=== PATIENT | female | born 1985 | race Caucasian/White ===

== ENCOUNTER 2016-07-09 22:48 | Emergency (ER) | payer OTHER, MEDICAID ==
[~2016-07-09] VITALS: Ht 157.5 cm; Wt 55.8 kg
[~2016-07-09 22:48] MED LIST: ADVAIR 10028 PUFF/IN IN; ADVAIR DISKUS 21 DSK IH; ALBUTEROL-200 PUFFS/ IH; ALBUTEROL2 PUFFS/17 IN; ALBUTEROL2.5 MG/NEB IN; APAP/BUTALBITAL1 TA1 PO; ATIVAN1 MG PO; BUPROPION HCL100 M3 PO; CEFTIN500 MG PO; CIPRO 500MG TA500 MG PO; COMBIVENT1 ARO IH; DELTASONE5 MG PO; DOXYCYCLINE100 M5 PO; EFFEXOR XR 75MG75 MG PO; EFFEXOR75 MG PO; FLEXERIL10 MG PO; HYDROXYZINE PAM50 MG PO; HYDROXYZINE50 MG PO; K-DUR 20MEQ TA20 MEQ PO; KEFLEX 500MG.500 MG PO; LORATADINE 10MG10 M1 PO; LORTAB 5/500 501 TAB PO; OMNICEF 300 MG300 MG PO; PHENERGAN 25MG.25 M1 PO; PHENERGAN12.5 M3 PO; PREDNISONE 20MG20 MG PO; PREDNISONE50 MG PO; RELPAX40 MG PO; RISPERDAL 0.20.25 MG PO; RISPERIDONE0.25 MG PO; ROBITUSSIN DM S10 ML PO; SEPTRA DS 800 M1 TAB PO; SINGULAIR 10 MG10 MG PO; SINGULAIR10 MG PO; SUBOXONE1 FI1 SL; SYMBICORT1 AER IH; TESSALON PERLE100 M1 PO; TRAMADOL 50MG T50 MG PO; TRAZODONE 50MG50 MG PO; TRAZODONE HCL50 MG PO; ULTRAM50 MG PO; VICODIN 5/500 T1 TAB PO; XANAX 0.5MG TA0.5 MG PO; ZITHROMAX Z PA250 MG PO; ZITHROMAX Z-PA250 M1 PO; ZOFRAN ODT4 MG PO; ZOFRAN4 MG PO; ZYRTEC 10MG TAB10 MG PO; ZYRTEC10 M2 PO; Zofran4 MG PO
--- NOTE | 2016-07-09 23:34 | Emergency Room Report ---
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 N Clinical Suspician of Infection? N Mental Status: 1 - Regular (Normal Baseline) Sepsis Risk: Have you (or family members/close friends) recently traveled outside the [place]? N If Yes, where/when: Have you had exposure to infectious disease within the past month? N TB? Other? Specify: Source patient, RN notes reviewed, family, old records Exam Limitations no limitations Comment pt with acute excerbation of known migraine rendon with no rash/fever or trauma Cardiac Chest Pain Chest pain indicative of cardiac No Timing/Duration this evening Severity moderate ALLERGIES Coded Allergies: acetaminophen (From DARVOCET-N 100) (07/09/16) propoxyphene (From DARVOCET-N 100) (07/09/16) Home Medications Active Scripts Albuterol (Albuterol-Hfa Inhaler) 2 PUFFS IH Q2HP PRN WHEEZING #1 INH Prov: 03/14/15 APAP 325MG/CAFF 40MG/BUTA 50MG (Efmbph-Wnweyyzt-Ocad 50-325-40) 1 TAB PO Q6HP PRN HEADACHE #10 TAB Prov: 03/14/15 Reported Medications Albuterol (Albuterol-Hfa Inhaler) 2 PUFFS IH Q4HPRN #1 INH CETIRIZINE HCL (Zyrtec) 10 MG PO DAILY ALBUTEROL (Albuterol 0.083% Neb) 3 ML IN PRN PRN ASTHMA ELETRIPTAN HBR (Relpax) 40 MG PO DAILYP PRN MIGRANE History Medical History General CAD? No Angina: No [place]: No Hypertension? No Hyperlipidemia? No CHF? No DVT? No PE? No COPD? No Asthma? Yes Anemia? Yes GERD? No Gastric ulcers? No GI Bleed? No Hernia? No Thyroid Problems? No Hypothyroidism? No CVA? No Seizures? Yes Diabetes? No Insulin Dependent: No Insulin Pump: No Home FSBS? No Renal Insuffiency? No End Stage Renal Disease? No UTI? Yes Stones? No BPH? No GB Disease: Yes Nephritic Syndrome? No Asplenia? No Hepatitis? No Sickle Cell Disease? No Arthritis? No Migraines? No Cataracts? No Glaucoma? No MRSA? Yes HIV? No TB? No Anxiety? Yes Depression? Yes Cancer? No More? 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 Respiratory denies cough, denies shortness of breath, denies wheezing Cardiovascular denies chest pain, denies palpitations, denies syncope Gastrointestinal see HPI, denies abdominal pain, nausea Genitourinary denies: dysuria, frequency, hesitancy, hematuria. Musculoskeletal denies joint pain, denies joint swelling, denies neck pain Skin denies rash Psychiatric/Neurological see HPI, headache, denies seizure Physical Exam Vital Signs Vital Signs Date Time Temp Pulse Resp B/P Pulse O2 O2 Flow FiO2 Ox Delivery Rate 07/09 2355 75 18 96/57 95 07/09 2303 18 07/09 2250 98.9 108 18 126/90 95 - WBC >12,000 or <4,000 or 10% bands? 2 or more SIRS Criteria Met? B/P: MAP:102 Creatinine >2.0? UA output<0.5ml/kg/hr for 2 hrs? Platelet count >100,000? Lactate >2.0mmol/1? INR >1.2 or PTT > than 60 sec? Evidence of Organ Dysfunction? Provider documented clinical suspician of infection? N Sepsis Criteria Count: 1 Sepsis Risk: General Appearance no apparent distress Eye Exam - bilateral eye PERRL, bilateral eye EOMI Ear, Nose, Throat normal ENT inspection Neck supple Respiratory Status No: respiratory distress. 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 No Results/Orders Current Medication Orders Sig/Olya Start time Last Medication Dose Route Stop Time Status Admin Diphenhydramine HCl 0 .STK-MED ONE 07/09 2353 DC .ROUTE Diphenhydramine HCl 25 MG ONCE ONE 07/09 2345 DC 07/09 IV 07/09 2346 2354 Sodium Chloride 1,000 ML .Q1H1M 07/09 2315 AC 07/09 IV 07/10 0015 2302 Sodium Chloride 10 ML PRN PRN 07/09 2315 AC IV 07/10 2301 Ketorolac 30 MG ONCE ONE 07/09 2300 DC 07/09 Tromethamine IV 07/09 230 2303 Ketorolac 0 .STK-MED ONE 07/09 2300 DC Tromethamine .ROUTE Ondansetron HCl 4 MG ONCE ONE 07/09 2300 DC 07/09 IV 07/09 2301 2302 Ondansetron HCl 0 .STK-MED ONE 07/09 2300 DC .ROUTE Sodium Chloride 1,000 ML .STK-MED ONE 07/09 2259 DC IV Departure Departure Time of Disposition 0002 Disposition DC Home or Self Care(routine) Clinical Impression Primary Impression: Headache Qualifiers: Headache type: unspecified Headache chronicity pattern: acute headache Intractability: not intractable Qualified Code: R51 - Headache Condition STABLE Referrals JANNY LOUIE DIXIE (Family) Patient Instructions DI for Headache Additional Instructions call pcp in am Discharge Counseling Counseled pt/family regarding diagnosis, test results, follow up needs ED Critical Care Critical Care No at 0004
--- NOTE | 2016-07-09 23:34 | Emergency Room Report ---
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 N Clinical Suspician of Infection? N Mental Status: 1 - Regular (Normal Baseline) Sepsis Risk: Have you (or family members/close friends) recently traveled outside the [place]? N If Yes, where/when: Have you had exposure to infectious disease within the past month? N TB? Other? Specify: Source patient, RN notes reviewed, family, old records Exam Limitations no limitations Comment pt with acute excerbation of known migraine rendon with no rash/fever or trauma Cardiac Chest Pain Chest pain indicative of cardiac No Timing/Duration this evening Severity moderate ALLERGIES Coded Allergies: acetaminophen (From DARVOCET-N 100) (07/09/16) propoxyphene (From DARVOCET-N 100) (07/09/16) Home Medications Active Scripts Albuterol (Albuterol-Hfa Inhaler) 2 PUFFS IH Q2HP PRN WHEEZING #1 INH Prov: 03/14/15 APAP 325MG/CAFF 40MG/BUTA 50MG (Tpgamg-Ilwkbbqb-Dijq 50-325-40) 1 TAB PO Q6HP PRN HEADACHE #10 TAB Prov: 03/14/15 Reported Medications Albuterol (Albuterol-Hfa Inhaler) 2 PUFFS IH Q4HPRN #1 INH CETIRIZINE HCL (Zyrtec) 10 MG PO DAILY ALBUTEROL (Albuterol 0.083% Neb) 3 ML IN PRN PRN ASTHMA ELETRIPTAN HBR (Relpax) 40 MG PO DAILYP PRN MIGRANE History Medical History General CAD? No Angina: No [place]: No Hypertension? No Hyperlipidemia? No CHF? No DVT? No PE? No COPD? No Asthma? Yes Anemia? Yes GERD? No Gastric ulcers? No GI Bleed? No Hernia? No Thyroid Problems? No Hypothyroidism? No CVA? No Seizures? Yes Diabetes? No Insulin Dependent: No Insulin Pump: No Home FSBS? No Renal Insuffiency? No End Stage Renal Disease? No UTI? Yes Stones? No BPH? No GB Disease: Yes Nephritic Syndrome? No Asplenia? No Hepatitis? No Sickle Cell Disease? No Arthritis? No Migraines? No Cataracts? No Glaucoma? No MRSA? Yes HIV? No TB? No Anxiety? Yes Depression? Yes Cancer? No More? 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 Respiratory denies cough, denies shortness of breath, denies wheezing Cardiovascular denies chest pain, denies palpitations, denies syncope Gastrointestinal see HPI, denies abdominal pain, nausea Genitourinary denies: dysuria, frequency, hesitancy, hematuria. Musculoskeletal denies joint pain, denies joint swelling, denies neck pain Skin denies rash Psychiatric/Neurological see HPI, headache, denies seizure Physical Exam Vital Signs Vital Signs Date Time Temp Pulse Resp B/P Pulse O2 O2 Flow FiO2 Ox Delivery Rate 07/09 2355 75 18 96/57 95 07/09 2303 18 07/09 2250 98.9 108 18 126/90 95 - WBC >12,000 or <4,000 or 10% bands? 2 or more SIRS Criteria Met? B/P: MAP:102 Creatinine >2.0? UA output<0.5ml/kg/hr for 2 hrs? Platelet count >100,000? Lactate >2.0mmol/1? INR >1.2 or PTT > than 60 sec? Evidence of Organ Dysfunction? Provider documented clinical suspician of infection? N Sepsis Criteria Count: 1 Sepsis Risk: General Appearance no apparent distress Eye Exam - bilateral eye PERRL, bilateral eye EOMI Ear, Nose, Throat normal ENT inspection Neck supple Respiratory Status No: respiratory distress. 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 No Results/Orders Current Medication Orders Sig/Olya Start time Last Medication Dose Route Stop Time Status Admin Diphenhydramine HCl 0 .STK-MED ONE 07/09 2353 DC .ROUTE Diphenhydramine HCl 25 MG ONCE ONE 07/09 2345 DC 07/09 IV 07/09 2346 2354 Sodium Chloride 1,000 ML .Q1H1M 07/09 2315 AC 07/09 IV 07/10 0015 2302 Sodium Chloride 10 ML PRN PRN 07/09 2315 AC IV 07/10 2301 Ketorolac 30 MG ONCE ONE 07/09 2300 DC 07/09 Tromethamine IV 07/09 230 2303 Ketorolac 0 .STK-MED ONE 07/09 2300 DC Tromethamine .ROUTE Ondansetron HCl 4 MG ONCE ONE 07/09 2300 DC 07/09 IV 07/09 2301 2302 Ondansetron HCl 0 .STK-MED ONE 07/09 2300 DC .ROUTE Sodium Chloride 1,000 ML .STK-MED ONE 07/09 2259 DC IV Departure Departure Time of Disposition 0002 Disposition DC Home or Self Care(routine) Clinical Impression Primary Impression: Headache Qualifiers: Headache type: unspecified Headache chronicity pattern: acute headache Intractability: not intractable Qualified Code: R51 - Headache Condition STABLE Referrals JANNY LOUIE DIXIE (Family) Patient Instructions DI for Headache Additional Instructions call pcp in am Discharge Counseling Counseled pt/family regarding diagnosis, test results, follow up needs ED Critical Care Critical Care No at 0004
[2016-07-10 00:08] VITALS: BP 96/57
[2016-08-18] MEDS ORDERED: BACTRIM DS 8001 TA1 PO (17:30)
== END 2016-07-10 00:13 | disposition home or self-care (01) ==
LOC: ER 22:48
DX: R51 Headache (principal); F41.8 Other specified anxiety disorders; Z72.0 Tobacco use
CPT/HCPCS: J2405

== ENCOUNTER 2016-07-24 17:39 | Emergency (ER) | payer OTHER, MEDICAID ==
[~2016-07-24] VITALS: Ht 157.5 cm; Wt 54.4 kg
--- NOTE | 2016-07-24 18:20 | Emergency Room Report ---
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 N Clinical Suspician of Infection? N Mental Status: 1 - Regular (Normal Baseline) Sepsis Risk:Low Sepsis Risk Have you (or family members/close friends) recently traveled outside the [place]? N If Yes, where/when: Have you had exposure to infectious disease within the past month? N TB? Other? Specify: Comment The patient states that she was moving a cinder block at 2 PM when she smashed her RIGHT small finger and ring finger distal phalanges. She has a blood blister on the finger pad of her ring finger and a laceration on the finger pad of her small finger. Last tetanus update was less than 5 years ago. ALLERGIES Coded Allergies: acetaminophen (From DARVOCET-N 100) (07/09/16) propoxyphene (From DARVOCET-N 100) (07/09/16) Home Medications Reported Medications No Known Home Medications History Medical History General CAD? No Angina: No [place]: No Hypertension? No Hyperlipidemia? No CHF? No DVT? No PE? No COPD? No Asthma? Yes Anemia? Yes GERD? No Gastric ulcers? No GI Bleed? No Hernia? No Thyroid Problems? No Hypothyroidism? No CVA? No Seizures? Yes Diabetes? No Insulin Dependent: No Insulin Pump: No Home FSBS? No Renal Insuffiency? No End Stage Renal Disease? No UTI? Yes Stones? No BPH? No GB Disease: Yes Nephritic Syndrome? No Asplenia? No Hepatitis? No Sickle Cell Disease? No Arthritis? No Migraines? No Cataracts? No Glaucoma? No MRSA? Yes HIV? No TB? No Anxiety? Yes Depression? Yes Cancer? No More? 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 Cardiovascular normal peripheral pulses Extremities 2 cm laceration finger pad RIGHT small finger, hemorrhagic vesicle, superficial, finger pad RIGHT ring finger, neurovascular intact Neurologic alert, no motor/sensory deficits Medical Decision Making LABS/Meds/Orders Pt receiving controlled substance in ED? No Results/Orders Current Medication Orders Sig/Olya Start time Last Medication Dose Route Stop Time Status Admin Multi-Ingredient 1 UDP ONCE ONE 07/24 1914 AC Ointment TP 07/24 1915 Bupivacaine HCl 10 ML ONCE ONE 07/24 183 DC SC 07/24 1830 Bupivacaine HCl 0 .STK-MED ONE 07/24 182 DC .ROUTE Orders Procedure Date/time Status HAND-RT 3 VIEWS 07/24 1821 Active XRAY/CT/US XRAY/CT/US XRAY hand Comment Interpreted by Alhaji Guerrero MD. Negative for fracture, dislocation, or foreign body. Procedures Laceration/Wound Repair Progress RIGHT small finger was anesthetized with 0.5 percent bupivacaine by digital block. When the wound was being scrubbed it was seen to be superficial, a ruptured partial thickness vesicle rather than a full thickness laceration. The ruptured blister was debrided away with iris scissors and the wound was cleansed and a bandage applied. The hemorrhagic vesicle on the ring finger was ruptured with iris scissors and allowed to drain. Departure Departure Disposition DC Home or Self Care(routine) Clinical Impression Primary Impression: Blister of finger Qualifiers: Encounter type: initial encounter Qualified Code: S60.429A - Blister (nonthermal) of unspecified finger, initial encounter Secondary Impressions: Contusion, finger Qualifiers: Encounter type: initial encounter Finger: unspecified finger Damage to nail status: with damage Qualified Code: S60.10XA - Contusion of unspecified finger with damage to nail, initial encounter Condition STABLE Referrals JANNY LOUIE, ROLO (Family) Additional Instructions Additional instructions for WOUND CARE: Clean the wound daily and a bandage. Return to the emergency room if increasing pain, swelling, redness, red streaks, pus drainage, or fever. Prescriptions Current Visit Scripts No Known Home Medications ED Critical Care Critical Care No at 1912
--- NOTE | 2016-07-24 18:20 | Emergency Room Report ---
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 N Clinical Suspician of Infection? N Mental Status: 1 - Regular (Normal Baseline) Sepsis Risk:Low Sepsis Risk Have you (or family members/close friends) recently traveled outside the [place]? N If Yes, where/when: Have you had exposure to infectious disease within the past month? N TB? Other? Specify: Comment The patient states that she was moving a cinder block at 2 PM when she smashed her RIGHT small finger and ring finger distal phalanges. She has a blood blister on the finger pad of her ring finger and a laceration on the finger pad of her small finger. Last tetanus update was less than 5 years ago. ALLERGIES Coded Allergies: acetaminophen (From DARVOCET-N 100) (07/09/16) propoxyphene (From DARVOCET-N 100) (07/09/16) Home Medications Reported Medications No Known Home Medications History Medical History General CAD? No Angina: No [place]: No Hypertension? No Hyperlipidemia? No CHF? No DVT? No PE? No COPD? No Asthma? Yes Anemia? Yes GERD? No Gastric ulcers? No GI Bleed? No Hernia? No Thyroid Problems? No Hypothyroidism? No CVA? No Seizures? Yes Diabetes? No Insulin Dependent: No Insulin Pump: No Home FSBS? No Renal Insuffiency? No End Stage Renal Disease? No UTI? Yes Stones? No BPH? No GB Disease: Yes Nephritic Syndrome? No Asplenia? No Hepatitis? No Sickle Cell Disease? No Arthritis? No Migraines? No Cataracts? No Glaucoma? No MRSA? Yes HIV? No TB? No Anxiety? Yes Depression? Yes Cancer? No More? 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 Cardiovascular normal peripheral pulses Extremities 2 cm laceration finger pad RIGHT small finger, hemorrhagic vesicle, superficial, finger pad RIGHT ring finger, neurovascular intact Neurologic alert, no motor/sensory deficits Medical Decision Making LABS/Meds/Orders Pt receiving controlled substance in ED? No Results/Orders Current Medication Orders Sig/Olya Start time Last Medication Dose Route Stop Time Status Admin Multi-Ingredient 1 UDP ONCE ONE 07/24 1914 AC Ointment TP 07/24 1915 Bupivacaine HCl 10 ML ONCE ONE 07/24 183 DC SC 07/24 1830 Bupivacaine HCl 0 .STK-MED ONE 07/24 182 DC .ROUTE Orders Procedure Date/time Status HAND-RT 3 VIEWS 07/24 1821 Active XRAY/CT/US XRAY/CT/US XRAY hand Comment Interpreted by Alhaji Guerrero MD. Negative for fracture, dislocation, or foreign body. Procedures Laceration/Wound Repair Progress RIGHT small finger was anesthetized with 0.5 percent bupivacaine by digital block. When the wound was being scrubbed it was seen to be superficial, a ruptured partial thickness vesicle rather than a full thickness laceration. The ruptured blister was debrided away with iris scissors and the wound was cleansed and a bandage applied. The hemorrhagic vesicle on the ring finger was ruptured with iris scissors and allowed to drain. Departure Departure Disposition DC Home or Self Care(routine) Clinical Impression Primary Impression: Blister of finger Qualifiers: Encounter type: initial encounter Qualified Code: S60.429A - Blister (nonthermal) of unspecified finger, initial encounter Secondary Impressions: Contusion, finger Qualifiers: Encounter type: initial encounter Finger: unspecified finger Damage to nail status: with damage Qualified Code: S60.10XA - Contusion of unspecified finger with damage to nail, initial encounter Condition STABLE Referrals JANNY LOUIE, ROLO (Family) Additional Instructions Additional instructions for WOUND CARE: Clean the wound daily and a bandage. Return to the emergency room if increasing pain, swelling, redness, red streaks, pus drainage, or fever. Prescriptions Current Visit Scripts No Known Home Medications ED Critical Care Critical Care No at 1912
[2016-07-24 19:19] VITALS: BP 118/77
--- NOTE | 2016-07-24 19:35 | RADIOLOGY REPORT PS360 ---
HAND-RT 3 VIEWS INDICATION: Smashed hand and fingers with cinderblock. Image injury right fourth and fifth fingers. TECHNIQUE: 3 views right hand COMPARISON: May 2007 right wrist FINDINGS: The fourth and fifth fingers appear intact. The hand appears intact. No acute fracture nor dislocation evident Visualized joint space well maintained. Normal mineralization. No obvious radio opaque foreign bodies. Unremarkable soft tissues. IMPRESSION: Negative right hand. The fourth and fifth fingers appear intact.
[2016-08-18] MEDS ORDERED: BACTRIM DS 8001 TA1 PO (17:30)
== END 2016-07-24 19:21 | disposition home or self-care (01) ==
LOC: ER 17:39
PROC: 3E0T33Z Introduction of Anti-inflammatory into Peripheral Nerves and Plexi, Percutaneous Approach (ICD-10-PCS; principal; 2016-07-24)
PROC: 3E0T3BZ Introduction of Anesthetic Agent into Peripheral Nerves and Plexi, Percutaneous Approach (ICD-10-PCS; principal; 2016-07-24)
PROC: 0JBJ0ZZ Excision of Right Hand Subcutaneous Tissue and Fascia, Open Approach (ICD-10-PCS; principal; 2016-07-24)
DX: S61.216A Laceration without foreign body of right little finger without damage to nail, initial encounter (principal); W23.0XXA Caught, crushed, jammed, or pinched between moving objects, initial encounter; Y92.69 Other specified industrial and construction area as the place of occurrence of the external cause; S60.429A Blister (nonthermal) of unspecified finger, initial encounter

== ENCOUNTER 2016-08-20 14:23 | Inpatient (IN) | payer OTHER, MEDICAID ==
[~2016-08-20] VITALS: Ht 157.5 cm; Wt 50.5 kg
[~2016-08-20 14:23] MED LIST changes: +BACTRIM DS 8001 TA1 PO
[2016-08-20 15:23] VITALS: BP 119/59
[2016-08-20 15:57] VITALS: BP 119/59
[2016-08-20 16:11] VITALS: BP 128/81
[2016-08-20] MEDS ORDERED: ZYRTEC10 M2 PO (16:12)
[2016-08-20 16:44] LABS: HEMOGLOBIN 12.2 g/dL (12.2-16.2); LYMPH # 1.1 K/mm3 (0.7-4.5); LYMPH % 12.1 % (10-50.0)
[2016-08-20 19:23] VITALS: BP 110/67
[2016-08-20 20:45] VITALS: BP 110/67
[2016-08-21 03:42] VITALS: BP 105/68
--- NOTE | 2016-08-21 04:45 | RADIOLOGY REPORT PS360 ---
CHEST(2 VIEWS-NOT PORTABLE) HISTORY: cough ORDERING PHYSICIAN: Leonard Latham MD PATIENT AGE: 31 years COMPARISON: 08/18/2016 FINDINGS: The cardiomediastinal silhouette and pulmonary vascularity are within normal limits. Calcified granuloma is present in the left lower lobe. There remains coarsening of the bronchovascular markings as previously described somewhat improved on today's exam.. No acute bony abnormalities. IMPRESSION: Improving bronchopneumonia
[2016-08-21 06:50] LABS: LYMPH # 1.4 K/mm3 (0.7-4.5); LYMPH % 29.5 % (10-50.0)
--- NOTE | 2016-08-21 07:14 | PHARMACY CLINIC NOTE ---
Patient Demographics Patient Demographics Admission date: 08/20/16 Date: 08/21/16 Time: 712 Allergies Coded Allergies: propoxyphene (From DARVOCET-N 100) (07/09/16) HEIGHT- FT: 5 IN: 2.00 K.491 VTE General Information Labs: Laboratory Tests 08/21 08/20 0605 1622 Hematology Hgb (12.2 - 16.2 g/dL) 11.0 L 12.2 Hct (37.0 - 47.0 %) 31.4 L 36.6 L Plt Count (142 - 424 K/mm3) 150 187 Disclaimer The following section includes nursing documentation that has been pulled in for pharmacy review. Patient's VTE score: 0 Patient's VTE Risk: VERY LOW RISK Clinical trial participant? No VTE prophylaxis NQF [id number] VTE prophylaxis ordered? Yes Type of prophylaxis/treatment: DARIEN at 0714
[2016-08-21 08:03] VITALS: BP 107/66
--- NOTE | 2016-08-21 08:36 | ACUTE CARE PROGRESS NOTE (QUA) ---
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 IV drug abuse 2. Abscess of arm, left Patient condition Stable Plan: continue current care This inpt stay is expected to cross 2 MNs from start of care Yes Comments: awaiting culture results at 7436
--- NOTE | 2016-08-21 08:36 | ACUTE CARE PROGRESS NOTE (QUA) ---
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 Patient/family reports: feeling better Nursing reports: no complaints Objective Findings Last VS-Temp:98.4 B/P:107/66 Pulse:93 Resp:20 SaO2:97 ROOM AIR Last weight lbs:111 oz:5 K.491 Method:Bed Scales Exam General appearance: alert Eyes: anicteric, PERRLA ENT: dry mucous membranes Neck: no JVD Cardiovascular: regular rate & rhythm Respiratory: no respiratory distress, rhonchi ABD: soft Genitourinary: no hematuria Extremities: moves all Musculoskeletal: equal muscle strength Skin: cellulitis lt upper ext Neuro: alert, hammer fitter II-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 IV drug abuse 2. Abscess of arm, left Patient condition Stable Plan: continue current care This inpt stay is expected to cross 2 MNs from start of care Yes Comments: awaiting culture results at [id number]
[2016-08-21 08:50] VITALS: BP 107/66
--- NOTE | 2016-08-21 09:33 | CONSULT NOTE ---
Pharmacokinetic Consult Date of consult: 08/21/16 Time of consult: 927 Referring provider: DR. DICKSON Reason for consult: VANCOMYCIN DOSING Allergies: Coded Allergies: propoxyphene (From DARVOCET-N 100) (07/09/16) Home Medications: Active Scripts SULFAMETHOXAZOLE W/TRIMETHOPRI (Bactrim Ds Tab) 1 TABLET PO BID #20 TAB Prov: 08/18/16 Reported Medications CETIRIZINE HCL (Zyrtec) 10 MG PO Height (feet): 5 Height (inches): 2.00 Medical History: CAD? No Angina: No [place]: No Hypertension? No Hyperlipidemia? No CHF? No DVT? No PE? No COPD? No Asthma? Yes Anemia? Yes GERD? No Gastric ulcers? No GI Bleed? No Hernia? No Thyroid Problems? No Hypothyroidism? No CVA? No Seizures? Yes Diabetes? No Insulin Dependent: No Insulin Pump: No Home FSBS? No Renal Insuffiency? No UTI? Yes Stones? No BPH? No GB Disease: Yes Nephritic Syndrome? No Asplenia? No Hepatitis? No Sickle Cell Disease? No Arthritis? No Migraines? No Cataracts? No Glaucoma? No MRSA? Yes HIV? No TB? No Anxiety? Yes Depression? Yes Cancer? No More? No Labs: Laboratory Tests 08/21/16 0605: Creatine Kinase 31, CK-MB (CK-2) Rel Index 2.6, CK and CKMB Interp 0.8, Troponin I < 0.02 08/21/16 0605: Sodium 142, Potassium 3.6, Chloride 108 H, Carbon Dioxide 26, BUN 9, Creatinine 0.6, Estimated Creat Clear 108, Estimated GFR (MDRD) 117, Glucose 99, Calcium 7.9 L, WBC 4.8, RBC 3.37 L, Hgb 11.0 L, Hct 31.4 L, MCV 93.4, RDW 13.9, Plt Count 150, MPV 6.4 L, Gran % 49.2, Gran # 2.4, Lymphocytes % 29.5, Monocytes % 4.9, Eosinophils % 16.2 H, Basophils % 0.3, Lymphocytes # 1.4, Monocytes # 0.2, Eosinophils # 0.8 H, Basophils # 0.0, PUBS MCHC 34.9, MCH 32.6 H 08/20/16 1622: Lactic Acid 0.6 08/20/16 1622: Sodium 138, Potassium 3.7, Chloride 103, Carbon Dioxide 26, BUN 11, Creatinine 0.7, Estimated Creat Clear 93, Estimated GFR (MDRD) 98, Glucose 92, Calcium 8.7, Total Bilirubin 0.5, AST 24, ALT 35, Alkaline Phosphatase 70, Total Protein 8.3 H, Albumin 3.3 L, Globulin 5.0 H, Albumin/Globulin Ratio 0.7 L, WBC 8.8, RBC 3.97 L, Hgb 12.2, Hct 36.6 L, MCV 92.0, RDW 13.9, Plt Count 187, MPV 6.3 L, Gran % 73.3, Gran # 6.5, Lymphocytes % 12.1, Monocytes % 4.3, Eosinophils % 10.1 , Basophils % 0.2, Lymphocytes # 1.1, Monocytes # 0.4, Eosinophils # 0.9 H, Basophils # 0.0, PUBS MCHC 33.4, ESR 79 H, MCH 30.7 Microbiology 08/20 1621 BLOOD: Anaerobic Blood Culture - RECD 08/20 162 BLOOD: Aerobic Blood Culture - RECD 08/20 162 BLOOD: Anaerobic Blood Culture - RECD 08/20 162 BLOOD: Aerobic Blood Culture - RECD Problem List: 1. Infection Plan: BASED ON PATIENT FACTORS, RECOMMEND VANCOMYCIN 1 GM IV Q12H. WILL OBTAIN VANCOMYCIN TROUGH LEVEL TOMORROW PRIOR TO AM DOSE. PHARMACY WILL FOLLOW DAILY AND ADJUST APPROPRIATE. at 0932
[2016-08-21 10:21] LABS: URINE BILIRUBIN - DIPSTICK NEGATIVE (NEG); URINE BLOOD NEGATIVE (NEG)
[2016-08-21 10:24] LABS: AMPHETAMINES/METAMPHETAMINES NEGATIVE ng/mL (<1000)
--- NOTE | 2016-08-21 14:35 | RADIOLOGY REPORT PS360 ---
PROCEDURE: 2-D M-mode and color Doppler study INDICATIONS FOR THE TEST: Chest pain COPD Heart MurmurX Tobacco Smoking Palpitations Fatigue Syncope Edema Hypertension Diabetes Mellitus Rheumatic Fever SOB MARTINES Obesity Hyperlipidemia Family History HD Additional History INFECTED TATTO PATIENT INFORMATION HEIGHT: 62 WEIGHT:111 GENDER: Female B/P:94/60 2-D/M-MODE INTERPRETATION: 2-D MEASUREMENTS OBSERVED VALUES IN CMS Right Ventricular Dimension (RVDd) 1.3 Interventricular Septum (Thickness)(IVsd) .7 Left Ventricular Internal Dimensions(LVIDd) 5.1 Left Ventricular Posterior Wall (Thickness)(LVPWd) .7 Aortic Root 2.6 Aortic Cusp Separation 2.0 Left Atrial Dimensions (LAD) 3.0 2D 1. Left atrium is normal size, left ventricle is normal size, there is preserved left ventricular systolic function, there is no concentric left ventricular hypertrophy, visually estimated to fraction of 55-60%. There is no regional wall motion abnormalities. 2. The right atrium and right ventricle are normal size and contractility. 3. The aortic mitral tricuspid valve is structurally normal. Pneumonic valve is not well visualized. 4. No significant pericardial effusion noted. DOPPLER INTERROGATION: Doppler interrogation of the aortic mitral and tricuspid valvular presence of trace mitral and tricuspid regurgitation, tricuspid regurgitant jet velocity insufficient for calculation of the right ventricular systolic pressure. CONCLUSION: 1. Normal left ventricular size preserved left ventricular systolic function visually estimated to fraction 55% with no obvious regional wall motion abnormality. 2. Trace mitral and tricuspid regurgitation, tricuspid regurgitant jet velocity insufficient for calculation of the right ventricular systolic pressure. 3. No significant pericardial effusion noted.
[2016-08-21 16:27] VITALS: BP 129/67
[2016-08-21 19:34] VITALS: BP 143/72
[2016-08-21 19:55] VITALS: BP 143/72
[2016-08-22 03:38] VITALS: BP 101/56
[2016-08-22 08:41] VITALS: BP 99/48
[2016-08-22] MEDS ORDERED: MINOCYCLINE 10100 MG PO (09:14)
--- NOTE | 2016-08-22 09:20 | ACUTE CARE PROGRESS NOTE (QUA) ---
Progress Notes Subjective Date 08/22/16 Time 0917 Patient/family reports: feeling better Nursing reports: alert Objective Findings Last VS-Temp:98.3 B/P:99/48 Pulse:87 Resp:20 SaO2:95 ROOM AIR Last weight lbs:111 oz:5 K.491 Method:Bed Scales Exam General appearance: normal appearance, alert, active, awake Eyes: normal exam ENT: normal exam Neck: normal inspection, full range of motion Cardiovascular: normal exam, regular rate & rhythm Respiratory: normal exam ABD: normal exam, soft Genitourinary: normal voiding & quantity Extremities: normal exam Musculoskeletal: normal exam Skin: SCABBED AREAS on LEFT upper arm Neuro: normal exam, no deficit Reviewed: allergies Assessment/Plan Problem List 1. IV drug abuse 2. Abscess of arm, left Patient condition Stable Plan: initiate discharge plan This inpt stay is expected to cross 2 MNs from start of care Yes Antibiotic Stewardship (2) Current Culture Results Microbiology 08/21 0945 URINE CC: Urine Culture - RES 08/20 1622 BLOOD: Anaerobic Blood Culture - RECD 08/20 1622 BLOOD: Aerobic Blood Culture - RECD 08/20 UNK UNKNOWN: Wound Culture - COMP STAPHYLOCOCCUS AUREUS at 0919
--- NOTE | 2016-08-22 09:29 | DISCHARGE SUMMARY STANDARD ---
Demographics Admit date: 08/20/16 Discharge date: 08/22/16 History of present illness History of present illness 31-year-old female presented for an infection in a new tattoo patient states she was already on Bactrim with no improvement. Patient states new reddened areas with blisters. Hospital Course Hospital Course: IV antibiotics. Wound culture grew staph AURAS sensitive to tetracycline. We'll discharge home and follow-up in the office on Friday Discharge diagnoses Problem List 1. IV drug abuse 2. Abscess of arm, left Medications Medications: Discharge meds are as noted. Follow up Follow up in office in: 5 DAYS with: Yeison ASENCIO,Leonard Cameron Comment: Follow-up Friday in the office. Keep area clean, return if worsens, rounded with lan at [phone]
--- NOTE | 2016-08-22 09:59 | CONSULT NOTE ---
Pharmacokinetic Consult Date of consult: 08/22/16 Time of consult: 956 Referring provider: DR. DICKSON Reason for consult: VANCOMYCIN TROUGH LEVEL AND DOSING CHANGE Allergies: Coded Allergies: propoxyphene (From DARVOCET-N 100) (07/09/16) Home Medications: Discontinued Scripts SULFAMETHOXAZOLE W/TRIMETHOPRI (Bactrim Ds Tab) 1 TABLET PO BID #20 TAB Prov: 08/18/16 DC: 08/22/16912 Reported Medications CETIRIZINE HCL (Zyrtec) 10 MG PO Height (feet): 5 Height (inches): 2.00 Medical History: CAD? No Angina: No [place]: No Hypertension? No Hyperlipidemia? No CHF? No DVT? No PE? No COPD? No Asthma? Yes Anemia? Yes GERD? No Gastric ulcers? No GI Bleed? No Hernia? No Thyroid Problems? No Hypothyroidism? No CVA? No Seizures? Yes Diabetes? No Insulin Dependent: No Insulin Pump: No Home FSBS? No Renal Insuffiency? No UTI? Yes Stones? No BPH? No GB Disease: Yes Nephritic Syndrome? No Asplenia? No Hepatitis? No Sickle Cell Disease? No Arthritis? No Migraines? No Cataracts? No Glaucoma? No MRSA? Yes HIV? No TB? No Anxiety? Yes Depression? Yes Cancer? No More? No Labs: Laboratory Tests 08/22/16 0730: Vancomycin Trough 4.8 L Problem List: 1. Infection Plan: BASED ON PATIENT VANCOMYCIN TROUGH LEVEL OF 4.8 MCG/ML, RECOMMEND CHANGING DOSING INTERVAL FROM Q12H TO Q8H AT THIS TIME. PHARMACY WILL FOLLOW DAILY AND ADJUST APPROPRIATE. HENRIK POTTER PHARMD at 0915
== END 2016-08-22 11:55 | disposition home or self-care (01) | DRG 603 ==
LOC: 2ND 14:23
PROVIDERS: Emergency Medicine
DX: L02.414 Cutaneous abscess of left upper limb (principal); F11.10 Opioid abuse, uncomplicated; B96.89 Other specified bacterial agents as the cause of diseases classified elsewhere; L81.8 Other specified disorders of pigmentation
CPT/HCPCS: J3370

== ENCOUNTER → 2017-04-10 | Outpatient (CLI) | payer OTHER, MEDICAID ==
[~2017-04-10] MED LIST changes: +AMOXICILLIN AND1 TA2 PO; +BREO ELLIPTA1 POW IH; +FLONASE 50 MCG16 GM; +MINOCYCLINE 10100 MG PO; +MONTELUKAST SOD10 MG PO
== END ==
LOC: LAB 09:46
DX: E55.9 Vitamin D deficiency, unspecified (principal)